=== PATIENT | female | born 2000 | race Caucasian/White ===

== ENCOUNTER 2021-04-25 11:00 | Emergency (ER) | payer OTHER, SELFPAY ==
[2021-04-25 11:08] VITALS: BP 116/67; PULSE 52; RESP 16; TEMP 36.1
[2021-04-25 11:09] VITALS: BP 116/67; PULSE 52; RESP 16; TEMP 36.1
--- NOTE | 2021-04-25 11:29 | ED.URI ---
HPI - URI/Sore Throat General Chief Complaint: Upper Respiratory Infection Stated Complaint: uri Time Seen by Provider: 04/25/21 11:29 Source: patient Mode of arrival: ambulatory Limitations: no limitations History of Present Illness HPI Narrative: Aleida Hernandez is a 20 yo female with no PMH comes to the [facility] with upper respiratory symptoms have been going on for 2 weeks; she currently has a mild sore throat without drainage and now her ears significant hurt she has been taking Sudafed and [id number] cough medicine with worsening symptoms. She is currently congested just states that her symptoms have not improved over the last 2 weeks and with states ears are now started hurting left greater than right Related Data Allergies Allergy/AdvReac Type Severity Reaction Status Date / Time ciprofloxacin Allergy Unknown Rash Verified 08/05/20 12:04 Review of Systems Review of Systems: CONSTITUTIONAL: Denies fever, chills, sweats. EYES: Denies visual changes, redness, discharge. ENT: Denies rhinorrhea, has congestion, sore throat, left greater than right ear pain CARDIOVASCULAR: Denies chest pain, palpitations, edema. RESPIRATORY: Denies dyspnea, wheezing, cough GASTROINTESTINAL: Denies abdominal pain, nausea, vomiting, diarrhea. GENITOURINARY: Denies dysuria, hematuria, abnormal discharge SKIN: Denies rash or itching. NEUROLOGIC: Denies numbness, or focal weakness. PSYCHIATRIC: Denies anxiety or depression. [facility] Family History Family History Father Family history of mental disorder Grandparent Hypertension Family history of malignant neoplasm of breast Mother Hypertension Social History Social History (Updated 04/25/21 @ 11:32 by Kyara Brown CNP) Smoking status: Never smoker Alcohol intake: current Comments At time of signature, I agree with nursing past medical, surgical, social and family history. There is no relevant family history pertinent to the presenting complaint. Exam Narrative: GENERAL: This is a well-nourished, well-developed patient, in mild distress. HEAD: normocephalic, atraumatic. EYES: Sclera clear/white. Vision is grossly intact. EARS: External ears normal, auditory canals erythema and without drainage, bulging TMs, L > R. Hearing grossly intact. NOSE: External nose normal with nasal discharge, nares without redness, has rhinorrhea. THROAT: Mucous membranes moist, posterior pharynx erythema no exudate NECK: Neck supple, non-tender CARDIOVASCULAR: Regular rate and rhythm without murmurs, gallops, or rubs. RESPIRATORY: Clear to auscultation. Breath sounds equal bilaterally. No wheezes, rales, or rhonchi. GASTROINTESTINAL: Abdomen soft, SKIN: warm, intact with no suspicious lesions or rash, good texture and turgor. NEURO: awake, alert, and oriented to person, place and time. There were no obvious focal neurologic abnormalities. Steady gait EXTREMITIES: Normal range of motion. BACK: Nontender without deformity Course Course Emergency Course: Ear pain left greater than right after 2 weeks of symptoms of congestion and sinus drainage Start amoxicillin 875 1 twice daily Patient told to push fluids and continue take Sudafed started Zyrtec Level of Care: Express Care Visit Vital Signs Vital signs: Vital Signs Temperature 96.9 F L 04/25/21 11:08 Pulse Rate 52 L 04/25/21 11:08 Respiratory Rate 16 04/25/21 11:08 Blood Pressure 116/67 04/25/21 11:08 Temperature 96.9 F L 04/25/21 11:09 Pulse Rate 52 L 04/25/21 11:09 Respiratory Rate 16 04/25/21 11:09 Blood Pressure 116/67 04/25/21 11:09 MDM - URI/Sore Throat
== END 2021-04-25 11:40 | disposition home or self-care (01) ==
PROVIDERS: Emergency Provider Nurse Practitioner; PCP Family Medicine
DX: J32.9 Chronic sinusitis, unspecified (principal)
CPT/HCPCS: 99213; G0463

== ENCOUNTER 2022-04-16 10:48 | Emergency (ER) | payer OTHER, SELFPAY ==
[2022-04-16 10:57] VITALS: BP 143/85; PULSE 68; RESP 14; TEMP 36.7; O2SAT 99
--- NOTE | 2022-04-16 11:29 | ED.URI ---
HPI - URI/Sore Throat General Chief Complaint: Upper Respiratory Infection Stated Complaint: uri Time Seen by Provider: 04/16/22 11:24 Source: patient Mode of arrival: ambulatory Limitations: no limitations History of Present Illness HPI Narrative: Patient presents today complaining of nasal congestion, rhinorrhea, clogged ears, facial pain, postnasal drip, and fatigue. States her symptoms began approximately 3 weeks ago, lasted for 2 weeks, improved for short period of time, then returned for the last 5-6 days. Denies cough, fever. She has been using Sudafed without much relief. Related Data Home Medications Medication Instructions Recorded Confirmed fluoxetine 20 mg tablet 20 mg PO DAILY 04/16/22 04/16/22 Allergies Allergy/AdvReac Type Severity Reaction Status Date / Time ciprofloxacin Allergy Unknown Rash Verified 04/16/22 10:52 Review of Systems Review of Systems: CONSTITUTIONAL: Denies body aches, fever, chills, or sweats.+ fatigue EYES: Denies visual changes, redness, or discharge. ENT: Denies sore throat, or otalgia.+ rhinorrhea, congestion, ear clogging, sinus pressure and pain, postnasal drip CARDIOVASCULAR: Denies chest pain, palpitations, or edema. RESPIRATORY: Denies cough or dyspnea. GASTROINTESTINAL: Denies abdominal pain, nausea, vomiting, or diarrhea. GENITOURINARY: Denies dysuria or hematuria. SKIN: Denies rash, itching, or wounds. MUSCULOSKELETAL: Denies back pain, joint pain, or myalgia. NEUROLOGIC: Denies headache, numbness, tingling, or weakness. PSYCH: Denies depression or anxiety. [facility] Family History Family History Father Family history of mental disorder Grandparent Hypertension Family history of malignant neoplasm of breast Mother Hypertension Social History Social History Smoking status: Never smoker Alcohol intake: current Substance use: never Lack of Transportation: No Lack of Food: Never True Current Housing: I Have Housing Concerned About Future Housing: No Difficulty Paying Gas/Electric Bills: No Difficulty Paying for Meds: No Currently Unemployed: No Education: Bachelor's Degree Difficulty w/ Childcare or Family Care: No Comments At time of signature, I have reviewed and agree with nursing past medical, surgical, social and family history unless otherwise noted. Please see nursing chart for further information. There is no relevant family history pertinent to the presenting complaint Exam Narrative: GENERAL: Well-appearing, well-nourished, and in no acute distress. HEAD: Normocephalic, atraumatic. EYES: EOMI. No redness or drainage. Conjunctivae normal. ENT: Mucous membranes pink and moist. Nares congested. No rhinorrhea. TMs normal bilaterally. Throat normal with small amount of postnasal drainage. Uvula midline. NECK: Normal AROM. Supple. No lymphadenopathy. CHEST: No respiratory distress. Clear to auscultation. HEART: Regular rate and rhythm. No murmur appreciated. Normal peripheral pulses. EXTREMITIES: Normal range of motion. No edema. SKIN: Warm, dry, no rash. Capillary refill normal. Normal skin turgor. NEURO: No focal deficits. Alert and oriented x3. Gait steady. PSYCH: Normal affect. No signs of depression or anxiety. Course Course Level of Care: Express Care Visit Vital Signs Vital signs: Vital Signs Temperature 98.1 F 04/16/22 10:57 Pulse Rate 68 04/16/22 10:57 Respiratory Rate 14 04/16/22 10:57 Blood Pressure 143/85 H 04/16/22 10:57 Pulse Oximetry 99 04/16/22 10:57 Oxygen Delivery Room Air 04/16/22 10:57 Temperature 98.1 F 04/16/22 10:57 Pulse Rate 68 04/16/22 10:57 Respiratory Rate 14 04/16/22 10:57 Blood Pressure 143/85 H 04/16/22 10:57 Pulse Oximetry 99 04/16/22 10:57 Oxygen Delivery Room Air 04/16/22 10:57 Reviewed. Pt has been instructed to
== END 2022-04-16 11:35 | disposition home or self-care (01) ==
PROVIDERS: Emergency Provider Nurse Practitioner; PCP Family Medicine
DX: J32.9 Chronic sinusitis, unspecified (principal); F41.9 Anxiety disorder, unspecified; F32.A Depression, unspecified
CPT/HCPCS: 99213; G0463